=== PATIENT | male | born 2000 | race Caucasian/White ===

== ENCOUNTER 2024-02-14 03:45 | Emergency (ER) | payer BC ==
[2024-02-14 04:07] VITALS: BMI 18.2
[2024-02-14] MEDS ORDERED: ACETAMINOPHEN INJECTION 100 ML ONE (05:03)
[2024-02-14 05:24] LABS: BASO % 0.5 % (0-2.0); EOS % 0.1 % (0-4.5); HEMATOCRIT 42.7 % (35.4-49); LYMPH % 13.5 % (8-40); MCH 28.8 pg (25.7-33.7); MCHC 32.8 g/dl (32.0-35.9); MEAN CELL VOLUME 87.9 fl (80-96); MEAN PLT VOLUME 6.4 fl (7.5-11.1); MONO % 11.4 % (3.8-10.2); NEUT % 74.5 % (42.8-82.8); PLATELET COUNT 370 10^3/uL (134-434); RBC 4.86 M/mm3 (4.00-5.60); RDW 13.1 % (11.9-15.9)
[2024-02-14] MEDS: SODIUM CHLORIDE 0.9% 500 ML INFUS.BAG IV ONE ×2 (05:36→06:49)
[2024-02-14] MEDS: ACETAMINOPHEN 1000 MG/100 ML BAG IVPB ONE (05:36)
[2024-02-14 05:39] LABS: POTASSIUM 4.1 mmol/L (3.5-5.1)
[2024-02-14 05:42] LABS: ALBUMIN 3.7 g/dl (3.4-5.0); BLOOD UREA NITROGEN 13.1 mg/dL (7-18)
[2024-02-14 05:44] LABS: CREATININE 0.6 mg/dL (0.55-1.3)
[2024-02-14 05:46] LABS: BILIRUBIN,TOTAL 0.5 mg/dL (0.2-1); TOT PROT 7.3 g/dl (6.4-8.2)
[2024-02-14 06:09] LABS: SYPHILIS W/ RPR CONF NON-REACTIVE (NONREACTIVE)
[2024-02-14 06:38] LABS: HIV INTERPRETATION NEGATIVE (NEGATIVE)
[2024-02-14] MEDS ORDERED: IBUPROFEN 400 MG TABLET (FP) PO ONE (07:47)
[2024-02-14] MEDS: IBUPROFEN 400 MG TABLET (FP) PO ONE (07:52)
[2024-02-14 10:56] VITALS: BP 110/72; PULSE 101; RESP 18; TEMP 98.5
[2024-02-14 10:58] LABS: URINE APPEARANCE CLEAR; URINE BILIRUBIN NEGATIVE (NEGATIVE); URINE COLOR YELLOW; URINE GLUCOSE (UA) NEGATIVE (NEGATIVE); URINE KETONE TRACE (NEGATIVE); URINE LEUK ESTERASE NEGATIVE (NEGATIVE); URINE NITRITE NEGATIVE (NEGATIVE); URINE PROTEIN NEGATIVE (NEGATIVE); URINE UROBILINOGEN 0.2 mg/dL (0.2-1.0)
== END 2024-02-14 12:47 | disposition home or self-care (01) ==
LOC: JER 03:45
PROC: 3E033NZ Introduction of Analgesics, Hypnotics, Sedatives into Peripheral Vein, Percutaneous Approach (ICD-10-PCS; principal; 2024-02-14)
DX: U07.1 COVID-19 (principal); D69.0 Allergic purpura; R34 Anuria and oliguria; R39.12 Poor urinary stream; M79.661 Pain in right lower leg; M79.662 Pain in left lower leg
CPT/HCPCS: 36415; 71045-TC-FY; 80053; 81003; 85025; 86705; 86707; 86780; 86803; 87086; 87340; 87350; 87389; 87517; 93005; 93010; 99285-25; J0131